=== PATIENT | female | born 2000 | race Caucasian/White ===

== ENCOUNTER 2022-04-05 12:04 | Emergency (ER) | payer BC | END 2022-04-05 14:29 | disposition home or self-care (01) | LOC: JD.ED 12:04 | DX: F11.10 Opioid abuse, uncomplicated (principal) | CPT/HCPCS: 36415; 80053; 80306; 85025; 99283 ==

== ENCOUNTER 2023-03-11 23:52 | Emergency (ER) | payer BC ==
[2023-03-12] MEDS ORDERED: Ondansetron 4 MG/2 ML SDV IVPUSH ONE (00:16)
[2023-03-12] MEDS ORDERED: Morphine 4 MG/ML Syringe IVPUSH ONE (00:16)
[2023-03-12] MEDS ORDERED: Sodium Chloride 0.9% 1,000 ML IV SCH (00:30)
[2023-03-12 00:39] LABS: ESTIMATED GFR 107 mL/min (>60)
[2023-03-12] MEDS ORDERED: Iopamidol 612 MG/ML 100 ML Bottle IVPUSH ONE (01:44)
== END 2023-03-12 03:50 | disposition home or self-care (01) ==
LOC: JD.ED 23:52
DX: R10.9 Unspecified abdominal pain (principal)
CPT/HCPCS: 36415; 74177; 80053; 80306; 80307; 81001; 83690; 84703; 85025; 96361; 96374; 96375; 99284; J2270; J2405; J7030; Q9967

== ENCOUNTER 2023-03-31 23:44 | Emergency (ER) | payer BC ==
[2023-04-01 00:57] LABS: APPEARANCE,URINE SLT CLOUDY (Clear); BILIRUBIN,URINE NEGATIVE (Negative); COLOR,URINE YELLOW (Yellow); GLUCOSE,URINE NEGATIVE (Negative); KETONES,URINE 3+ (Negative); LEUKOCYTE ESTERASE,URINE TRACE (Negative); NITRITE,URINE POSITIVE (Negative); OCCULT BLOOD,URINE NEGATIVE (Negative); PROTEIN,URINE 1+ (Negative); UROBILINOGEN,URINE 0.2 (0.2-1.0)
[2023-04-01 01:03] LABS: BACTERIA,URINE MANY /hpf (FEW); MUCUS,URINE MANY /hpf (FEW); RBC,URINE 0-5 /hpf (0-5)
[2023-04-01 01:06] LABS: HEMATOCRIT 39.8 % (34.1-44.9); HEMOGLOBIN 13.3 gm/dl (11.2-15.7); MEAN CORPUSCULAR HEMOGLOBIN 28.5 pg (25.6-32.2); MEAN CORPUSCULAR HGB CONC 33.4 g/dl (32.2-35.5); MEAN CORPUSCULAR VOLUME 85.4 fl (79.4-94.8); MEAN PLATELET VOLUME 9.8 fl (9.4-12.3); PLATELET COUNT,PLT 313 K/mm3 (182-369); RED BLOOD CELL COUNT 4.66 M/mm3 (3.98-5.22); WHITE BLOOD CELL COUNT,WBC 9.99 K/mm3 (3.98-10.04)
[2023-04-01] MEDS ORDERED: Nitrofurantoin Monohydrate/Macrocrystalline 100 MG Cap PO STA (01:10)
[2023-04-01 01:28] LABS: A/G RATIO 1.2 (1-2); ALANINE AMINOTRANSFERASE,ALT 21 U/L (14-59); ALBUMIN 4.3 g/dl (3.4-5.0); ALKALINE PHOSPHATASE 84 U/L (46-116); ANION GAP 12.7 (5-15); ASPARTATE AMNIOTRANSFERASE,AST 20 U/L (15-37); BAND PERCENT MAN 0 % (0-10); BASOPHILS PERCENT MAN 0 (0.1-1.2); BILIRUBIN TOTAL 0.5 mg/dL (0.2-1.0); BLOOD UREA NITROGEN,BUN 14 mg/dL (7-18); C-REACTIVE PROTEIN <0.2 mg/dL (<1.0); CALCIUM 9.7 mg/dL (8.5-10.1); CARBON DIOXIDE,CO2 27 mEq/L (21-32); CHLORIDE,CL 104 mEq/L (98-107); CREATININE 0.7 mg/dL (0.55-1.02); EOSINOPHILS PERCENT MAN 0 % (0.7-5.8); EST CRCL DRUG DOSING (CG) 123.63 mL/min; ESTIMATED GFR 126 mL/min (>60); GLUCOSE RANDOM 105 mg/dL (70-99); LYMPHOCYTES % ATYPICAL MANUAL 0 %; LYMPHOCYTES PERCENT MAN 29 % (20-40); MONOCYTES PERCENT MAN 4 % (2-10); POTASSIUM,K 4.7 mEq/L (3.5-5.1); PROTEIN TOTAL,TP 7.9 g/dl (6.4-8.2); SODIUM,NA 139 mEq/L (136-145)
[2023-04-01 01:29] LABS: PLATELET COUNT ESTIMATE ADEQUATE
[2023-04-01] MEDS ORDERED: Ibuprofen 600 MG Tab PO ONE (01:35)
== END 2023-04-01 02:58 ==
LOC: JD.ED 23:44
DX: N30.90 Cystitis, unspecified without hematuria (principal)
CPT/HCPCS: 36415; 80053; 81001; 81025; 85007; 85027; 86140; 87086; 87088; 87186; 99284; A9270; 99283

== ENCOUNTER 2024-08-21 00:11 | Emergency (ER) | payer BC ==
[2024-08-21] MEDS: Dicyclomine 10 MG Cap PO ONE (01:10)
[2024-08-21] MEDS: Ondansetron 4 MG Tab.DIS PO ONE (01:10)
[2024-08-21] MEDS: Magnesium Citrate Solution 296 ML Bottle PO ONE (01:56)
== END 2024-08-21 01:57 | disposition home or self-care (01) ==
LOC: JD.ED 00:11
DX: K59.01 Slow transit constipation (principal); Z86.16 Personal history of COVID-19
CPT/HCPCS: 74018; 99284; A9270